=== PATIENT | female | born 1995 | race Caucasian/White ===

== ENCOUNTER → 2017-12-15 | Day surgery (SDC) | payer OTHER ==
[~2017-12-15] VITALS: Ht 154.9 cm; Wt 90.7 kg
[~2017-12-15] MED LIST: BIRTH CONTROL PO; CEPHALEXIN500 M1 PO; LEXAPRO20 MG PO; MACROBID100 M1 PO; MOTRIN600 MG PO; NORCO 5-325 TA1 EACH PO; PENICILLIN-VK500 M1 PO; SPRINTEC 35 MCG1 TA1 PO; TRI-SPRINTEC 281 TAB PO; TYLENOL W/CODEI1 TA2 PO; VISTARIL25 M1 PO; Zofran4 MG PO
--- NOTE | ~2017-12-15 | O ---
[place], [place] OPERATIVE NOTE NAME: GENO LINDSEY UNIT #: [id number] ROOM: DOCTOR: LEONARDO DUDLEY DMD BIRTHDATE: [birth year] DOS: PREOPERATIVE DIAGNOSES: Impacted third molars and anxiety. POSTOPERATIVE DIAGNOSES: Impacted third molars and anxiety. ANESTHESIA: General anesthesia with endotracheal intubation. FLUIDS: Minimal. ESTIMATED BLOOD LOSS: Minimal. COMPLICATIONS: None. CONDITION: To PACU, stable. DESCRIPTION OF PROCEDURE: The patient was brought to the OR and placed in supine position. IV and EKG lines were placed. Endotracheal intubation and general anesthesia was administered. The patient was prepped and draped for oral procedures. Risks and benefits were explained to the patient prior to surgery. Clinical exam and x-rays taken determined partial bony impactions of teeth #1 and #16, complete bony impactions of teeth #17 and #32. PROCEDURES PERFORMED: Full thickness flaps in all 4 quadrants, moderate bone removal and sectioning of teeth #17 and #32. Complete extraction of teeth #1, #16, #17 and #32, sutured with 4-0 Vicryl and lavaged x 2. Throat pack removed. The patient left the OR in good condition and went to the PACU. LEONARDO DUDLEY DMD CM:OPRECORD:OPERATIVE NOTE [id number] LEONARDO DUDLEY DMD 12/17/17 1540 interface
[2017-12-15 08:58] VITALS: BP 136/78
[2017-12-15 11:20] VITALS: BP 132/61
[2017-12-15 11:35] VITALS: BP 116/67
[2017-12-15 11:50] VITALS: BP 114/66
[2017-12-15 12:05] VITALS: BP 105/63
[2017-12-15 12:20] VITALS: BP 108/65
== END | disposition home or self-care (01) ==
LOC: SDC 12-11 11:00
DX: K01.1 Impacted teeth (principal); F41.8 Other specified anxiety disorders; E66.9 Obesity, unspecified; Z68.37 Body mass index [BMI] 37.0-37.9, adult; Z87.891 Personal history of nicotine dependence; Z82.49 Family history of ischemic heart disease and other diseases of the circulatory system